=== PATIENT | female | born 1935 | race Caucasian/White ===

== ENCOUNTER 2021-09-20 23:21 | Emergency (ER) | payer MEDICARE ==
[2021-09-21] MEDS ORDERED: NORCO 5-325 TA1 EACH PO (02:23)
== END 2021-09-21 02:54 | disposition home or self-care (01) ==
LOC: FER 23:21
DX: M25.551 Pain in right hip (principal); M54.50 Low back pain, unspecified; W01.0XXA Fall on same level from slipping, tripping and stumbling without subsequent striking against object, initial encounter; Y92.009 Unspecified place in unspecified non-institutional (private) residence as the place of occurrence of the external cause
CPT/HCPCS: 72192; J1170